=== PATIENT | female | born 1960 | race Caucasian/White ===

== ENCOUNTER 2024-06-26 07:13 | Day surgery (SDC) | payer OTHER ==
[2024-06-25 11:09] LABS: BASOPHILS # (AUTO) 0.1 X10'3 (0-0.2); EOSINOPHILS # (AUTO) 0.1 X10'3 (0-0.9); EOSINOPHILS % (AUTO) 2.1 % (0-6); LYMPHOCYTES # (AUTO) 1.2 X10'3 (1.1-4.8); LYMPHOCYTES % (AUTO) 19.7 % (21-51); MEAN CORPUSCULAR HEMOGLOBIN 32.6 PG (27.0-31.0); MEAN CORPUSCULAR HGB CONC 33.7 g/dL (33.0-36.5); MEAN PLATELET VOLUME 8.1 FL (7.4-10.4); MONOCYTES # (AUTO) 0.7 X10'3 (0-0.9); MONOCYTES % (AUTO) 10.5 % (2-12); NEUTROPHILS # (AUTO) 4.2 X10'3 (1.8-7.7); NEUTROPHILS % (AUTO) 66.7 % (42-75); PRE OP HEMATOCRIT 43.6 % (35.0-45.0); PRE OP HEMOGLOBIN 14.7 g/dL (12.0-16.0); PRE OP PLATELET COUNT 261 X10'3 (140-440); PRE OP WHITE BLOOD COUNT 6.3 10'3 (4.8-10.8); RED BLOOD COUNT 4.49 X10'6 (4.20-5.60)
[2024-06-25 11:22] LABS: PRE OP PROTIME 10.9 SECONDS (9.0-12.0)
[2024-06-25 11:24] LABS: ALBUMIN 3.7 G/DL (3.4-5.0); ALBUMIN/GLOBULIN RATIO 0.9 (1.1-1.5); ALKALINE PHOSPHATASE 103 IU/L (46-116); BLOOD UREA NITROGEN 12 MG/DL (7-18); BUN/CREATININE RATIO 12.9 (10.0-20.0); CALCIUM 9.3 MG/DL (8.5-10.1); CHLORIDE 106 MMOL/L (99-107); CREATININE 0.93 MG/DL (0.40-0.90); PRE OP ALT 35 U/L (30-65); PRE OP ANION GAP 6 (8-16); PRE OP AST 24 U/L (10-37); PRE OP BILIRUB, TOTAL 0.5 MG/DL (0.0-1.0); PRE OP GLUCOSE 116 MG/DL (70-104); PRE OP POTASSIUM 4.2 MMOL/L (3.4-5.1); PRE OP SODIUM 143 MMOL/L (135-145); TOTAL CARBON DIOXIDE 31.2 MMOL/L (24-32); TOTAL PROTEIN 7.6 G/DL (6.4-8.2); eGFR 61 ML/MIN
[~2024-06-26] VITALS: Ht 292.1 cm; Wt 93.9 kg
[2024-06-26] VITALS (8 sets, daily range): BP systolic 110–139; BP diastolic 70–85; PULSE 72–92; RESP 13–18; TEMP 99.1; O2SAT 10–100
[2024-06-26] MEDS: cefazolin 2gm/D5W 100mL 100 ML IV ONE (05:30)
[~2024-06-26 07:13] MED LIST: AMLO5TAB16 PO; LORA10TA7 PO
[2024-06-26] MEDS: famotidine 20mg tablet PO ONE (08:12)
[2024-06-26] MEDS: ringers solution, lacted 1,000 ML IV SCH (08:12)
[2024-06-26] MEDS ORDERED: sevoflurane 250ml liquid IH ONE (09:30)
[2024-06-26] MEDS ORDERED: BUPIVAcaine 2.5mg/ml inj 50ml vial (contains preservative) ONE (09:31)
[2024-06-26] MEDS ORDERED: fentaNYL/PF 50MCG/1 ML 2ML syringe ONE (09:32)
[2024-06-26] MEDS: BUPIVAcaine 2.5mg/ml inj 50ml vial (contains preservative) SQ ONE (09:49)
[2024-06-26] MEDS: LIDOcaine 1% (10mg/ml)w/preservative inj. 20ml MDV ONE (09:50)
[2024-06-26] MEDS ORDERED: morphine 4 MG/ML inj SYRINge IV PRN (11:25)
[2024-06-26] MEDS ORDERED: fentaNYL/PF 50MCG/1 ML 2ML syringe IV PRN (11:25)
[2024-06-26] MEDS ORDERED: HYDROmorphone/PF 0.2 MG/ML SYRINGE IV PRN (11:25)
[2024-06-26] MEDS ORDERED: ondansetron/PF 4mg/2ml inj IV PRN (11:25)
== END 2024-06-26 11:55 | disposition home or self-care (01) ==
LOC: PRE-OP 07:13
PROVIDERS: ATTEND Surgery
DX: C50.312 Malignant neoplasm of lower-inner quadrant of left female breast (principal); G89.18 Other acute postprocedural pain; I10 Essential (primary) hypertension; Z79.899 Other long term (current) drug therapy; Z79.01 Long term (current) use of anticoagulants
CPT/HCPCS: 19301; 36415; 38525; 38792; 64420; 64421; 80053; 82948; 85025; 85610; 85730; 93005; J0690; J1100; J2405; J2704; J3010; J3490; J7030; J7120; Z7506; Z7508; Z7512; A4215; A4618; A6449; A7000